=== PATIENT | female | born 1980 | race Caucasian/White ===

== ENCOUNTER 2017-12-27 10:54 | Outpatient (REF) | payer BC, SELFPAY | END 2017-12-27 11:14 | LOC: NCHCN 10:54 | PROVIDERS: PCP Nurse Practitioner; Visit Provider Nurse Practitioner | DX: R35.0 Frequency of micturition (principal) | CPT/HCPCS: 87086 ==

== ENCOUNTER 2018-02-08 13:07 | Outpatient (REF) | payer BC, SELFPAY ==
--- NOTE | 2018-02-08 11:00 | SKI_PTH ---
PATIENT: Kary Fontanez LOC: [facility] U#:[id number] AGE/SX: 37/F ROOM: RE02/08/[address]: Mundo Walker : 1980 BED: DIS: 02/08/2018 SPEC #: [id number] RECD: 02/08/18 17:32 STATUS: ADAM REQ #: [id number] JOSE: 02/08/18 11:[address]: Mundo Walker DEPT: Surgical Specimen RECD BY: Kimber Iglesias ENTERED: 02/08/18 17:33 SP TYPE: MATILDE COLLINS DR: Raven Asher Tissues: 1 - SKIN BIOPSY(SHAVE/PUNCH) Procedures: SKIN LEVEL 4 Comments: [id number]
== END 2018-02-08 13:27 ==
LOC: NCHCN 13:07
PROVIDERS: PCP Nurse Practitioner; Visit Provider Family Medicine
DX: C43.72 Malignant melanoma of left lower limb, including hip (principal)
CPT/HCPCS: 88305

== ENCOUNTER 2018-03-04 11:02 | Day surgery (SDC) | payer BC, SELFPAY ==
--- NOTE | 2018-03-04 06:42 | W.PM.OP ---
Date of service: 03/04/18 Time of Service: 12:41 Operative Note DATE OF PROCEDURE: 03/04/18 PRE-OP DIAGNOSIS: Melanoma of LLE POST-OP DIAGNOSIS: same PROCEDURE: Wide local excision of Melanoma measuring 5 x 10 cm SURGEON: Maria R Morris ANESTHESIA: MAC (Jair Hewitt, PLATFORM MATERIAL HANDLING SUPERVISOR/ ASA 2) and local ESTIMATED BLOOD LOSS: 20 PATHOLOGY: other (melanoma, marked at the superior corner) COMPLICATIONS: None Patient was transported to: same day Patient's condition: stable Indications: Mrs. Fontanez is a pleasant 37-year-old who had a biopsy of a lesion on her left lower extremity done by her primary care physician. Unfortunately the lesion came back as melanoma Bradley 2. She was seen in the office for wide local excision. Risks, benefits, and complications were reviewed with her and she wished to proceed. No guarantees were given or implied. Findings: 0.7 cm scab from the prior biopsy site Procedure Description: After informed consent was obtained and the LLE extremity lesion was marked, Mrs. Fontanez was taken to the operating room placed in a supine position. She was then sedated and a timeout was done. The patient's name, date of , procedure site and type were reviewed. Her left lower extremity was then prepped and draped in a sterile surgical fashion. Using a skin marker an elliptical area was marked that was 2 cm from the lesion edge. The measured area was 5 x 10 cm. The skin was then infiltrated with 1% lidocaine. The subcutaneous tissue was also infiltrated with 1% lidocaine. Using a 10 blade the skin was incised. The subcutaneous tissue was dissected with cautery all the way down to the fascia. Once the tissue was elevated away from the fascia it was marked with 2-0 silk in the superior corner. The specimen was given to the gear keeper to place in formalin. A skin flap was then created again using cautery circumferentially. There was some bleeding noted and this was stopped with cautery. A small bleeding vessel was suture ligated with 2-0 silk. Once the wound was dry the subcutaneous tissue and skin were infiltrated with Exparel. A total of 10 cc was used. The subcutaneous tissue was then re-approximated using 2-0 Vicryl interrrupted sutures. The dermis was re-approximated using 3-0 Prolene vertical mattress sutures. The skin was then cleaned and dried Mastisol and Steri-Strips were applied. 4 x 4's were applied and secured with Kerlix. The patient was woken up and taken back to same day surgery in stable condition. Sponge instrument needle counts were correct x2 at the end of the case.
--- NOTE | 2018-03-04 06:44 | PDOC.DSDIS_ITS ---
Discharge Plan Disposition Patient Disposition: HOME Condition: Good Discharge Details Reason For Visit: Melanoma LLE Attending Provider: Maria R Morris Primary Care Provider: Raven Asher Home Meds and New Rx's Prescriptions: No Action rizatriptan [Maxalt] 10 mg tablet 10 mg PO ONCE PRNRF: 0 Discharge Instructions Instructions: Care For Your Stitches (DC) Additional Instructions: Activity at Home after surgery: 1. You may walk. Elevate your LLE as much as possible for next few days. 2. You should be able to climb a flight of stairs 3. No driving while in pain or taking pain medications 4. Do not kneel for 2 weeks Diet, Nutrition, & wound healin. Eat a normal healthy diet 2. Eat a variety of fruits and vegetables. Eat plenty of high fiber foods to avoid constipation. 3. Drink plenty of liquids to stay hydrated and avoid constipation Pain Medications: 1. Alternate Tylenol 1000 mg and Ibuprofen 600 mg every 3 hours 2. If a narcotic has been prescribed take as directed only for breakthrough pain For Constipation: 1. Take Milk of Magnesia or MiraLax as needed for constipation Other: 1. You may shower daily. Do not scrub the incisions 2. Do not soak the incisions for 1 week 3. You may alternate ice and heat as needed for pain and swelling Wound Care: 1. Keep the incisions clean and dry 2. You may remove the dressing tomorrow Please call our office if you develop: 1. Fevers >101.5 2. Nausea or Vomiting 3. Worsening pain 4. Redness and thick discharge from the wounds If after hours please call the Hospital at and ask to speak to the on-call surgeon Stand Alone Forms: DSU Post op Instructions, Channing Rivera (DSU) Referrals: Maria R Morris MD [ [facility] STAFF PHYSICIAN] - 03/15/18 8:00 am Activity:: Elevate LLE when sitting Diet:: As Tolerated Discharge Orders Discharge Orders: Discharge Order (Routine); Ordered 03/04/18 Ordered By: Maria R Morris
[2018-03-04 11:10] VITALS: BP 119/78; PULSE 82; RESP 16; TEMP 36.4; O2SAT 100
[2018-03-04] MEDS: Lactated Ringers 1,000 ML 80 ML IV (11:33)
[2018-03-04] MEDS: Lidocaine 1% Pres-Free 5 ML VIAL (12:39)
--- NOTE | 2018-03-04 12:45 | SKI_PTH ---
PATIENT: Kary Fontanez LOC: [facility] U#:[id number] AGE/SX: 37/F ROOM: RE03/04/[address]: Maria R Morris MD : 1980 BED: DIS: 03/04/2018 SPEC #: [id number] RECD: 03/04/18 16:56 STATUS: ADAM REHome #: [id number] JOSE: 03/04/18 12:[address]: Maria R Morris DEPT: Surgical Specimen RECD BY: Kimber Iglesias ENTERED: 03/04/18 16:58 SP TYPE: MATILDE COLLINS DR: Raven Asher Tissues: 1 - SKIN BIOPSY(SHAVE/PUNCH) Procedures: SKIN LEVEL 4 Comments: [id number]
[2018-03-04] MEDS: Bupivacaine LIPOSOME/PF 133 MG/10 ML VIAL IJ (13:00)
[2018-03-04 13:58] VITALS: BP 112/69; PULSE 64; RESP 16; TEMP 36.4; O2SAT 100
== END 2018-03-04 14:42 | disposition home or self-care (01) ==
LOC: SUR 11:02
PROVIDERS: PCP Nurse Practitioner; Visit Provider Surgery
PROC: (CPT 11606; principal; 2018-03-04 11:45)
DX: C43.72 Malignant melanoma of left lower limb, including hip (principal)
CPT/HCPCS: 11606; 12034; 81025; 88304; 88305; J2250; J3010

== ENCOUNTER 2019-08-22 09:45 | Outpatient (CLI) | payer BC, SELFPAY ==
--- NOTE | 2019-08-22 14:05 | DI.RAD_ITS ---
EXAM: XR LUMBAR SPINE COMPLETE CLINICAL HISTORY: LOWER BACK PAIN, M54.5. TECHNIQUE: 2D digital imaging was performed. COMPARISON: No exams were available for comparison FINDINGS: BONES: No fracture or destructive lesion. Vertebral bodies are unremarkable. No facet hypertrophy marisela ntified. DISKS: Intervertebral disc spaces are maintained. ALIGNMENT: Lumbar spinal alignment is within normal limits. SOFT TISSUE: Normal. IMPRESSION: Unremarkable radiographs of the lumbar spine. DATA REPOSITORY: RADIATION DOSE DELIVERED:
== END 2019-08-22 10:05 ==
PROVIDERS: PCP Nurse Practitioner; Visit Provider Nurse Practitioner Family
DX: M54.5 Low back pain (principal)
CPT/HCPCS: 72110

== ENCOUNTER 2019-11-11 01:18 | Outpatient (CLI) | payer BC, SELFPAY ==
--- NOTE | 2019-11-11 | DI.US_ITS ---
EXAM: MG MAMMO DIAGNOSTIC BI CLINICAL HISTORY: LT BREAST LUMP BEHIND LT NIPPLE,TENDER TO PALPATION. COMPARISON: US US BREAST LT LIMITED from 11/11/2019 TECHNIQUE: Craniocaudal and mediolateral oblique Full Field Digital Mammography views of the both br easts with Computer Aided Diagnosis followed by Tomosynthesis and left breast ultrasound. FINDINGS: Mammography/Tomosynthesis: This is a baseline examination. Patient notes a palpable abnormality early in the subareolar region of the left breast. Masses/Architectural Distortion: None seen. Microcalcifications: No suspicious pleomorphic-type are seen. Skin Thickening/Nipple Retraction: None. Breast US: Echotexture: Normal appearance of the glandular tissue. Shadowing: No suspicious foci. Cyst: None. Solid lesions: None seen. Ductal dilation: None. IMPRESSION: 1. No evidence of malignancy is noted. 2. Unless there is more urgent need, follow-up screening mammography is recommended, as per [place] [employer] guidelines. BI-RADS Category 1 - Negative Breast Density - Category C - Heterogeneously dense The mammogram demonstrates the patient's breast tissue is dense. Dense breast tissue is very common a nd is not abnormal but dense breast tissue can make it harder to find cancer on a mammogram. Also, de nse breast tissue may increase their breast cancer risk. This information about the result of the [facility] mogram report was provided to the patient to raise their awareness. Use this report when you speak wi th the patient about their risks for breast cancer, which includes their family history. At that time , you may recommend for more screening tests (Ultrasound or MRI) as they might be useful based on the ir risk. A negative radiographic report should not delay biopsy if a dominant or clinically suspicious mass is present. Up to ten percent of cancers are not identified on mammography. A negative report may reinforce clinical impression. Adenosis and dense breasts may obscure an underlying neoplasm. False positive reports average 6 to 10%. Patient will receive a letter notifying them of these results.
== END 2019-11-11 01:38 ==
PROVIDERS: PCP Nurse Practitioner; Visit Provider Nurse Practitioner Family
DX: R92.8 Other abnormal and inconclusive findings on diagnostic imaging of breast (principal); R92.2 Inconclusive mammogram; N63.20 Unspecified lump in the left breast, unspecified quadrant
CPT/HCPCS: 76642; 77062; 77066; G0279

== ENCOUNTER 2021-02-22 14:46 | Outpatient (REF) | payer BC, SELFPAY ==
--- NOTE | 2021-02-22 13:30 | PAPFT_PTH ---
PATIENT: Kary Fontanez LOC: [facility] U#:[id number] AGE/SX: 40/F ROOM: RE02/22/[address]: KAR Mcconnell : 1980 BED: DIS: 02/22/2021 SPEC #: [id number] RECD: 02/22/21 18:27 STATUS: ADAM REQ #: [id number] JOSE: 02/22/21 13:[address]: Ramonita Benitez DEPT: [facility] Cytology RECD BY: Kimber Iglesias ENTERED: 02/22/21 18:27 SP TYPE: PAPFT OTHR DR: Raven Asher Tissues: 1 - CX/ENDOCX FOR PAP SMEARS Procedures: PAP THIN PREP/UVM Screening HPV DNA PROBE Comments: [id number]
== END 2021-02-22 14:47 | disposition home or self-care (01) ==
LOC: LBN 14:46
PROVIDERS: PCP Nurse Practitioner; Visit Provider Nurse Practitioner Family
DX: Z12.4 Encounter for screening for malignant neoplasm of cervix (principal); Z11.51 Encounter for screening for human papillomavirus (HPV)
CPT/HCPCS: 88142; 87624

== ENCOUNTER 2021-04-25 00:45 | Outpatient (CLI) | payer BC, SELFPAY ==
--- NOTE | 2021-04-25 12:30 | DI.MAMMO_ITS ---
Exam(s) MAMMO SCREENING EXAM: MAMMO SCREENING CLINICAL HISTORY: screening TECHNIQUE: Mammograms were interpreted according to the usual protocol including computer analysis w [employer] CAD system, tomosynthesis and C-view imaging. COMPARISON: 2019 FINDINGS: The breasts are composed of heterogeneously dense fibroglandular densities, Breast Density category C . No suspicious masses or suspicious microcalcifications are seen. No skin thickening or abnormal axillary lymph nodes are seen. There has been no significant change from prior exams. IMPRESSION: BI-RADS Category 1, Negative mammogram. Yearly screening mammography is recommended. Breast Density Category C, heterogeneously Dense. The mammogram demonstrates the patient's breast tissue is dense. Dense breast tissue is very common a nd is not abnormal but dense breast tissue can make it harder to find cancer on a mammogram. Also, de nse breast tissue may increase breast cancer risk. This information about the result of the mammogram report was provided to the patient to raise their awareness. Use this report when you speak with the patient about their risks for breast cancer, which includes their family history. At that time, you may recommend additional screening tests (Ultrasound or MRI) as they might be useful based on their r isk. A negative radiographic report should not delay biopsy if a dominant or clinically suspicious mass is present. Up to ten percent of cancers are not identified on mammography. A negative report may reinforce clinical impression. Adenosis and dense breasts may obscure an underlying neoplasm. False positive reports average 6 to 10%.
== END 2021-04-25 01:05 ==
PROVIDERS: PCP Nurse Practitioner; Visit Provider Nurse Practitioner Family
DX: Z12.31 Encounter for screening mammogram for malignant neoplasm of breast (principal)
CPT/HCPCS: 77063; 77067

== ENCOUNTER 2021-10-06 18:16 | Outpatient (REF) | payer BC, SELFPAY ==
[2021-10-06 19:35] LABS: HGB 12.6 g/dL (11.2-15.7); MCH 31.7 pg (27.0-33.0); MCHC 34.1 % (32.0-36.0); MCV 93 fL (80-95); MPV 12.3 fL (8.0-11.0); Platelet Count 220 10^3/uL (130-400); RBC 3.97 10^6/uL (3.93-5.22); RDW 12.4 % (11.7-14.6); RDW-SD 42.7 fL; WBC 5.76 10^3/uL (4.4-10.8)
[2021-10-06 19:45] LABS: ALT 18 U/L (14-59); AST 17 U/L (15-37); Alkaline Phosphatase 51 U/L (46-116); Anion Gap 8.7 mmol/L (3-11); BUN 11 mg/dL (7-18); Bilirubin, Total 1.1 mg/dL (0.2-1.0); CO2 28.3 mmol/L (21.0-32.0); CREATININE 0.6 mg/dL (0.55-1.02); Calcium 8.8 mg/dL (8.5-10.1); Calculated LDL 72 mg/dL (<100); Chloride 104 mmol/L (98-107); Cholesterol 164 mg/dL (<200); Glucose 112 mg/dL (74-106); HDL Cholesterol 79 mg/dL (40-60); Potassium 4.1 mmol/L (3.5-5.1); Sodium 141 mmol/L (136-145); Total Protein 7.4 g/dL (6.4-8.2); Triglyceride 65 mg/dL (<150)
[2021-10-08 09:19] LABS: HIV-1/2 Ag & Ab Screen Negative (Negative)
[2021-10-10 11:51] LABS: Hepatitis C Ab w Rflx HCV PCR Negative (Negative)
== END 2021-10-06 18:17 | disposition home or self-care (01) ==
LOC: NCHCN 18:16
PROVIDERS: PCP Nurse Practitioner; Visit Provider Nurse Practitioner Family
DX: G43.909 Migraine, unspecified, not intractable, without status migrainosus (principal); Z11.4 Encounter for screening for human immunodeficiency virus [HIV]; Z11.59 Encounter for screening for other viral diseases; K59.00 Constipation, unspecified
CPT/HCPCS: 80053; 80061; 85027; 86803; 87389

== ENCOUNTER → 2023-03-12 02:48 | Outpatient (CLI) | payer BC, SELFPAY ==
--- NOTE | 2023-03-12 | DI.MAMMO_ITS ---
Exam(s) MAMMO SCREENING EXAM: MAMMO SCREENING CLINICAL HISTORY: SCREENING, Z12.39 TECHNIQUE: Bilateral full field digital CC and MLO mammographic images were obtained with 3D tomosyn thesis and utilizing computer aided detection (CAD). COMPARISON: Available for comparison. FINDINGS: Masses/Architectural Distortion: None seen. Microcalcifications: No suspicious pleomorphic-type are seen. Skin Thickening/Nipple Retraction: None. IMPRESSION: 1. No significant interval change with no specific features of malignancy noted. 2. Unless there is more urgent need, screening mammography is recommended, as per [place] [employer] guidelines. BI-RADS Category 1 - Negative Breast Density - Category C - Heterogeneously dense Breast density category C or D implies that the patient has dense breast tissue. Dense breast tissue is very common and is not abnormal but dense breast tissue can make it harder to find cancer on a ma mmogram. Also, dense breast tissue may increase their breast cancer risk. This information about the result of the mammogram report was provided to the patient to raise their awareness. Use this report when you speak with the patient about their risks for breast cancer, which includes their family hist ory. At that time, you may recommend for more screening tests (Ultrasound or MRI) as they might be us eful based on their risk. A negative radiographic report should not delay biopsy if a dominant or clinically suspicious mass is present. Up to ten percent of cancers are not identified on mammography. A negative report may reinforce clinical impression. Adenosis and dense breasts may obscure an underlying neoplasm. False positive reports average 6 to 10%. Patient will receive a letter notifying them of these results.
== END ==
PROVIDERS: PCP Nurse Practitioner Family; Visit Provider Nurse Practitioner Family
DX: Z12.31 Encounter for screening mammogram for malignant neoplasm of breast (principal)
CPT/HCPCS: 77063; 77067

== ENCOUNTER 2024-01-25 14:56 | Outpatient (REF) | payer BC, SELFPAY ==
[2024-01-25 19:41] LABS: Abs Immature Grans 0.01 10^3/uL (0.0-0.06); Absolute Basophil Count 0.02 10^3/uL (0.0-0.2); Absolute Eosinophil Count 0.14 10^3/uL (0.0-0.7); Absolute Lymphocyte Count 1.44 10^3/uL (1.2-3.4); Absolute Monocyte Count 0.34 10^3/uL (0.1-0.8); Absolute Neutrophil Count 3.93 10^3/uL (1.2-6.7); Basophils % 0.3 %; Eosinophils % 2.4 %; HCT 38.4 % (36.0-46.0); HGB 12.6 g/dL (11.2-15.7); Immature Grans % 0.2 %; Lymphocytes % 24.5 %; MCH 30.9 pg (27.0-33.0); MCHC 32.8 % (32.0-36.0); MCV 94 fL (80-95); MPV 11.9 fL (8.0-11.0); Monocytes % 5.8 %; Neutrophils % 66.8 %; Platelet Count 215 10^3/uL (130-400); RBC 4.08 10^6/uL (3.93-5.22); RDW 12.6 % (11.7-14.6); RDW-SD 43.6 fL; WBC 5.88 10^3/uL (4.4-10.8)
[2024-01-25 20:21] LABS: Iron 42 ug/dL (50-170); Total Iron Binding Capacity 315 ug/dL (250-450); Transferrin Sat 13 % (15-50)
[2024-01-25 20:47] LABS: Ferritin 15 ng/mL (8-252); Folate 14.6 ng/mL (8.6-20.0); TSH (W/Ref FT4) 1.58 uIU/mL (0.36-3.74); Vitamin B12 298 pg/mL (193-986); Vitamin D 25 Total 29.1 ng/mL (30-100)
== END 2024-01-25 14:57 | disposition home or self-care (01) ==
LOC: NCHCN 14:56
PROVIDERS: PCP Nurse Practitioner Family; Visit Provider Nurse Practitioner Family
DX: G47.61 Periodic limb movement disorder (principal); R53.83 Other fatigue
CPT/HCPCS: 82306; 82607; 82728; 82746; 83540; 83550; 84443; 85025

== ENCOUNTER 2024-08-06 00:32 | Outpatient (CLI) | payer BC, SELFPAY ==
--- NOTE | 2024-08-06 | DI.MAMMO_ITS ---
Exam(s) MAMMO SCREENING EXAM: MAMMO SCREENING CLINICAL HISTORY: SCREENING, Z12.31 TECHNIQUE: Mammograms were interpreted according to the usual protocol including computer analysis with CAD system, tomosynthesis and C-view imaging. COMPARISON: 2019 through 2023 FINDINGS: The breasts are composed of heterogeneously dense fibroglandular densities, Breast Density category C. No suspicious masses or suspicious microcalcifications are seen. No skin thickening or abnormal axillary lymph nodes are seen. There has been no significant change from prior exams. IMPRESSION: BI-RADS Category 1, Negative mammogram. Yearly screening mammography is recommended. Breast Density: Category C - The breasts are heterogeneously dense, which may obscure small masses. Breast density Category C or D implies that the patient has dense breast tissue. Dense breast tissue can make it harder to find cancer on a mammogram. Dense breast tissue is also associated with an increased risk of breast cancer. This information about the result of the mammogram report was provided to the patient to raise their awareness. Use this report when you speak with the patient about their risks for breast cancer, which includes their family history. At that time, you may recommend additional screening tests (Ultrasound or MRI) as these tests may add significant information. A negative radiographic report should not delay biopsy if a dominant or clinically suspicious mass is present. Up to ten percent of cancers are not identified on mammography. A negative report may reinforce clinical impression. Adenosis and dense breasts may obscure an underlying neoplasm. False positive reports average 6 to 10%.
== END 2024-08-06 00:52 ==
PROVIDERS: PCP Nurse Practitioner Family; Visit Provider Family Medicine
DX: Z12.31 Encounter for screening mammogram for malignant neoplasm of breast (principal); R92.333 Mammographic heterogeneous density, bilateral breasts
CPT/HCPCS: 77063; 77067